=== PATIENT | male | born 1945 | race Caucasian/White ===

== ENCOUNTER 2019-10-23 05:30 | Inpatient (IN) | payer BC ==
[2019-10-18 11:15] LABS: BASOPHILS # (AUTO) 0.1 K/uL (0.0-0.2); BASOPHILS % (AUTO) 1.2 % (0.0-2.0); EOSINOPHILS # (AUTO) 0.2 K/uL (0.0-0.4); EOSINOPHILS % (AUTO) 2.7 % (0.0-4.0); HEMOGLOBIN 14.4 g/dL (14.0-18.0); LYMPHOCYTES # (AUTO) 2.1 K/uL (1.0-5.5); LYMPHOCYTES % (AUTO) 28.6 % (20.5-51.5); MEAN CORPUSCULAR HEMOGLOBIN 32 pg (27-31); MEAN CORPUSCULAR HGB CONC 34 % (32-36); MEAN CORPUSCULAR VOLUME 94 fL (79.0-98.0); MONOCYTES # (AUTO) 0.8 K/uL (0.0-1.0); MONOCYTES % (AUTO) 10.5 % (1.7-9.3); NEUTROPHILS # (AUTO) 4.2 K/uL (1.8-7.7); PLATELET COUNT (AUTO) 271 K/uL (130-430); RED BLOOD CELL COUNT(AUTO) 4.58 MIL/uL (4.2-6.2); RED CELL DISTRIBUTION WIDTH 13.4 % (9.0-15.0); WHITE BLOOD COUNT (AUTO) 7.4 K/uL (4.8-10.8)
[2019-10-18 11:27] LABS: BILIRUBIN,URINE NEGATIVE (NEGATIVE); CLARITY/URINE CLEAR (CLEAR); COLOR,URINE YELLOW (YELLOW); GLUCOSE,URINE NEGATIVE (NEGATIVE); KETONES,URINE NEGATIVE (NEGATIVE); LEUKOCYTE ESTERASE ,URINE NEGATIVE (NEGATIVE); NITRITE, URINE NEGATIVE (NEGATIVE); PH,URINE 5.5 (5.0-8.0); PROTEIN URINE NEGATIVE (NEGATIVE); UROBILINOGEN,URINE 0.2 (0.2-1.0)
[2019-10-18 11:33] LABS: PROTHROMBIN TIME 9.9 SECS (9.5-12.5)
[2019-10-18 11:42] LABS: BLOOD, URINE TRACE (NEGATIVE)
[2019-10-18 11:52] LABS: BACTERIA,URINE FEW /HPF (None Seen); WBC,URINE 0-3 /HPF (0-3)
[2019-10-22 20:00] VITALS: BP_SYST 102
[~2019-10-23] VITALS: Ht 188 cm; Wt 101.6 kg
[2019-10-23] MEDS ORDERED: ACETAMINOPHEN 500 MG TABLET ONE (06:14)
[2019-10-23] MEDS ORDERED: CELECOXIB 200 MG CAPSULE ONE (06:14)
[2019-10-23] MEDS ORDERED: oxyCODONE HCL 10 MG TAB.ER.12H PO ONE ×2 (06:15→07:30)
[2019-10-23] MEDS ORDERED: TRANEXAMIC ACID 650 MG TABLET ONE (06:15)
[2019-10-23] MEDS ORDERED: GABAPENTIN 300 MG CAPSULE ONE (06:15)
[2019-10-23] MEDS ORDERED: BENA20TA75 PO (07:15)
[2019-10-23] MEDS ORDERED: BUPIVACAINE /PF 0.75% 10 ML VIAL INJ ONE (07:16)
[2019-10-23] MEDS ORDERED: NS 50 ML BAG IV ONE (07:16)
[2019-10-23] MEDS ORDERED: TRANEXAMIC ACID 1,000 MG/10 ML VIAL IV ONE (07:16)
[2019-10-23] MEDS ORDERED: PROPOFOL 200MG/ 20ML VIAL (DIPRIVAN) IV ONE (07:16)
[2019-10-23] MEDS ORDERED: BUPIVACAINE /PF 0.25% 30 ML VIAL INJ ONE (07:16)
[2019-10-23] MEDS ORDERED: ONDANSETRON HCL 4 MG/2 ML VIAL IVP ONE (07:16)
[2019-10-23] MEDS ORDERED: LR 1,000 ML IV.SOLN IV ONE (07:16)
[2019-10-23] MEDS ORDERED: SEVOFLURANE 15 MIN GAS INH ONE (07:16)
[2019-10-23] MEDS ORDERED: ePHEDrine sulfate 50 MG/ML VIAL IVP ONE (07:16)
[2019-10-23] MEDS ORDERED: MIDAZOLAM HCL 5 MG/5 ML VIAL IVP ONE (07:16)
[2019-10-23] MEDS ORDERED: ROPIVACAINE HCL/PF 5 MG/ML 0.5% 30 ML VIAL INJ ONE (07:16)
[2019-10-23] MEDS ORDERED: MORPHINE SULFATE 10MG/10ML PF AMP EP ONE (07:16)
[2019-10-23] MEDS ORDERED: TRANEXAMIC ACID 650 MG TABLET PO ONE (07:30)
[2019-10-23] MEDS ORDERED: CEFAZOLIN SOD 2 GM in D5W 50 ML IV ONE (07:30)
[2019-10-23] MEDS ORDERED: GABAPENTIN 300 MG CAPSULE PO ONE (07:30)
[2019-10-23] MEDS ORDERED: ACETAMINOPHEN 500 MG TABLET PO ONE (07:30)
[2019-10-23] MEDS ORDERED: CELECOXIB 200 MG CAPSULE PO ONE (07:30)
[2019-10-23] MEDS ORDERED: RIVAROXABAN 10 MG TABLET PO ONE ×2 (09:00→11:15)
[2019-10-23] MEDS ORDERED: D5/0.45 NS 1,000 ML IV ONE (09:34)
[2019-10-23] MEDS ORDERED: ACETAMINOPHEN 325 MG TABLET PO PRN (09:45)
[2019-10-23] MEDS ORDERED: BISACODYL 10 MG/SUPPOSITORY RC PRN (09:45)
[2019-10-23] MEDS ORDERED: CEFAZOLIN 1 GM IVPB PREMIX 50 ML IV SCH ×2 (10:00→11:15)
[2019-10-23 10:49] VITALS: BP_SYST 106
[2019-10-23] MEDS: NACL 0.9% 1,000 ML IV SCH ×3 (11:46→21:45)
[2019-10-23] MEDS: CEFAZOLIN 1 GM IVPB PREMIX 50 ML IV SCH ×2 (14:27→21:44)
[2019-10-23 20:00] VITALS: BP_SYST 102
[2019-10-24 00:08] VITALS: BP_SYST 113
[2019-10-24] MEDS: HYDROcodone/ACETAMIN 7.5-325 MG TAB PO PRN ×4 (06:15→23:37)
[2019-10-24] MEDS: NACL 0.9% 1,000 ML IV SCH ×3 (06:15→23:30)
[2019-10-24 08:37] VITALS: BP_SYST 134
[2019-10-24] MEDS: RIVAROXABAN 10 MG TABLET PO SCH (09:27)
[2019-10-24 09:42] LABS: BASOPHILS % (AUTO) 0.4 % (0.0-2.0); EOSINOPHILS % (AUTO) 0.3 % (0.0-4.0); HEMATOCRIT 32.7 % (36-54); LYMPHOCYTES # (AUTO) 1.9 K/uL (1.0-5.5); LYMPHOCYTES % (AUTO) 16.7 % (20.5-51.5); MEAN CORPUSCULAR HEMOGLOBIN 32 pg (27-31); MEAN CORPUSCULAR HGB CONC 33 % (32-36); MEAN CORPUSCULAR VOLUME 94 fL (79.0-98.0); MONOCYTES # (AUTO) 1.8 K/uL (0.0-1.0); MONOCYTES % (AUTO) 15.4 % (1.7-9.3); NEUTROPHILS # (AUTO) 7.6 K/uL (1.8-7.7); NEUTROPHILS % (AUTO) 67.2 % (40.0-70.0); PLATELET COUNT (AUTO) 190 K/uL (130-430); RED BLOOD CELL COUNT(AUTO) 3.48 MIL/uL (4.2-6.2); RED CELL DISTRIBUTION WIDTH 13.2 % (9.0-15.0); WHITE BLOOD COUNT (AUTO) 11.4 K/uL (4.8-10.8)
[2019-10-24 09:52] LABS: ANION GAP 7 (5-15); CALCIUM 7.9 mg/dL (8.4-11.0); CHLORIDE 104 mmol/L (98-107); CREATININE 0.98 mg/dL (0.55-1.30); GLUCOSE 101 mg/dL (70-99); POTASSIUM 4.2 mmol/L (3.5-5.1); SODIUM SERUM 137 mmol/L (136-145); UREA NITROGEN, BLOOD 23 mg/dL (8-21)
[2019-10-24 09:57] LABS: ALANINE AMINOTRANSFERASE 21 U/L (12-78); ALBUMIN 2.9 g/dL (3.4-4.8); ASPARTATE AMINOTRANSFERASE 19 U/L (10-37); TOTAL BILIRUBIN 0.8 mg/dL (0.0-1.0)
[2019-10-24 12:26] VITALS: BP_SYST 140
[2019-10-24 16:20] VITALS: BP_SYST 137
[2019-10-24 20:00] VITALS: BP_SYST 115
[2019-10-25] MEDS: MORPHINE SULFATE 10 MG/ML VIAL IM PRN ×2 (01:02→05:14)
[2019-10-25 01:04] VITALS: BP_SYST 131
[2019-10-25 01:46] VITALS: BP_SYST 144
[2019-10-25 01:51] VITALS: BP_SYST 128
[2019-10-25] MEDS: NACL 0.9% 1,000 ML IV SCH (07:30)
[2019-10-25 08:00] VITALS: BP_SYST 134
[2019-10-25] MEDS: RIVAROXABAN 10 MG TABLET PO SCH (08:46)
[2019-10-25] MEDS ORDERED: RIVA10TA PO ×2 (09:56→09:57)
[2019-10-25 10:00] VITALS: BP_SYST 141
== END 2019-10-25 14:10 | disposition home health service (06) | DRG 470 ==
LOC: SDS 05:30 → SMU 05:30 → EDSTATUS 07:30 → SMU 10:59 → SDS 18:30 → SMU 18:33
PROVIDERS: ADMIT Orthopaedic Surgery; ATTEND Orthopaedic Surgery
PROC: 0SRC0J9 Replacement of Right Knee Joint with Synthetic Substitute, Cemented, Open Approach (ICD-10-PCS; principal; 2019-10-23 07:30)
DX: M17.11 Unilateral primary osteoarthritis, right knee (principal); E44.0 Moderate protein-calorie malnutrition; F17.210 Nicotine dependence, cigarettes, uncomplicated; I10 Essential (primary) hypertension
CPT/HCPCS: 36415; 71046-TC; 80053; 81000-TC; 85025; 85610-TC; 85730-TC; 87081; 88305; 88311; 93005; 97039; 97110-GP; 97163; C1713; J0690; J2250; J2270; J2274; J2405; J2704; J3490; J7030; J7060; J7120

== ENCOUNTER 2020-05-23 11:19 | Outpatient (CLI) | payer OTHER, BC ==
[~2020-05-23 11:19] MED LIST: BENA20TA75 PO
== END 2020-05-23 20:22 | disposition home or self-care (01) ==
LOC: SRD 11:19
PROVIDERS: ATTEND Orthopaedic Surgery
DX: M17.12 Unilateral primary osteoarthritis, left knee (principal)
CPT/HCPCS: 73564

== ENCOUNTER 2020-06-17 05:30 | Inpatient (IN) | payer BC ==
[2020-06-10 10:31] LABS: BILIRUBIN,URINE NEGATIVE (NEGATIVE); BLOOD, URINE NEGATIVE (NEGATIVE); CLARITY/URINE CLEAR (CLEAR); COLOR,URINE YELLOW (YELLOW); GLUCOSE,URINE NEGATIVE (NEGATIVE); KETONES,URINE NEGATIVE (NEGATIVE); LEUKOCYTE ESTERASE ,URINE NEGATIVE (NEGATIVE); NITRITE, URINE NEGATIVE (NEGATIVE); PROTEIN URINE NEGATIVE (NEGATIVE); UROBILINOGEN,URINE 0.2 (0.2-1.0)
[2020-06-10 10:38] LABS: BASOPHILS # (AUTO) 0.1 K/uL (0.0-0.2); BASOPHILS % (AUTO) 0.7 % (0.0-2.0); EOSINOPHILS # (AUTO) 0.2 K/uL (0.0-0.4); EOSINOPHILS % (AUTO) 2.7 % (0.0-4.0); HEMATOCRIT 43.1 % (36-54); HEMOGLOBIN 14.5 g/dL (14.0-18.0); LYMPHOCYTES % (AUTO) 24.5 % (20.5-51.5); MEAN CORPUSCULAR HEMOGLOBIN 31 pg (27-31); MEAN CORPUSCULAR HGB CONC 34 % (32-36); MEAN CORPUSCULAR VOLUME 93 fL (79.0-98.0); MONOCYTES # (AUTO) 1.1 K/uL (0.0-1.0); MONOCYTES % (AUTO) 13.2 % (1.7-9.3); NEUTROPHILS # (AUTO) 4.8 K/uL (1.8-7.7); NEUTROPHILS % (AUTO) 58.9 % (40.0-70.0); PLATELET COUNT (AUTO) 264 K/uL (130-430); RED BLOOD CELL COUNT(AUTO) 4.62 MIL/uL (4.2-6.2); RED CELL DISTRIBUTION WIDTH 13.8 % (9.0-15.0); WHITE BLOOD COUNT (AUTO) 8.2 K/uL (4.8-10.8)
[2020-06-10 10:57] LABS: ANION GAP 9 (5-15); CALCIUM 8.7 mg/dL (8.4-11.0); CHLORIDE 101 mmol/L (98-107); CREATININE 1.11 mg/dL (0.55-1.30); GLUCOSE 109 mg/dL (70-99); POTASSIUM 4.3 mmol/L (3.5-5.1); SODIUM SERUM 136 mmol/L (136-145); UREA NITROGEN, BLOOD 22 mg/dL (8-21)
[~2020-06-17] VITALS: Ht 185.4 cm; Wt 102.1 kg
[2020-06-17] MEDS ORDERED: POLYMYXIN 500,000/BACIT.10,000 UNITS in NS IRR 1 L IR ONE (07:22)
[2020-06-17] MEDS ORDERED: BISACODYL 10 MG/SUPPOSITORY RC PRN (07:30)
[2020-06-17] MEDS ORDERED: CEFAZOLIN SOD 1 GM in D5W 50 ML IV ONE (07:30)
[2020-06-17] MEDS ORDERED: ACETAMINOPHEN 325 MG TABLET PO PRN (07:30)
[2020-06-17] MEDS ORDERED: SEVOFLURANE 15 MIN GAS INH ONE (08:25)
[2020-06-17] MEDS ORDERED: LIDOCAINE 1% 10 MG/ML, 20 ML MDV INJ ONE (08:25)
[2020-06-17] MEDS ORDERED: fentaNYL CITRATE/PF 100 MCG/2 ML AMP IVP ONE (08:25)
[2020-06-17] MEDS ORDERED: LR 1,000 ML IV.SOLN IV ONE (08:25)
[2020-06-17] MEDS ORDERED: PROPOFOL 200MG/ 20ML VIAL (DIPRIVAN) IV ONE (08:25)
[2020-06-17] MEDS ORDERED: ePHEDrine sulfate 50 MG/ML VIAL IVP ONE (08:25)
[2020-06-17] MEDS ORDERED: TRANEXAMIC ACID 1,000 MG/10 ML VIAL IV ONE (08:25)
[2020-06-17] MEDS ORDERED: fentaNYL CITRATE 250 MCG/5 ML AMP IV ONE (08:25)
[2020-06-17] MEDS ORDERED: ROPIVACAINE HCL/PF 5 MG/ML 0.5% 30 ML VIAL INJ ONE (08:25)
[2020-06-17] MEDS ORDERED: ONDANSETRON HCL 4 MG/2 ML VIAL IVP ONE (08:25)
[2020-06-17] MEDS ORDERED: ROCURONIUM BROMIDE 10 MG/ML (ZEMURON) IV ONE (08:25)
[2020-06-17] MEDS ORDERED: METOCLOPRAMIDE HCL 10 MG/2 ML VIAL IVP ONE (08:25)
[2020-06-17] MEDS ORDERED: GLYCOPYRROLATE 0.2 MG/ML VIAL IJ ONE (08:25)
[2020-06-17] MEDS ORDERED: LR 1,000 ML IV SCH (10:00)
[2020-06-17] MEDS ORDERED: HYDROmorphone 1 MG INJ. 1 MG/ML AMPUL IVP PRN ×2 (10:00)
[2020-06-17] MEDS ORDERED: ONDANSETRON HCL 4 MG/2 ML VIAL IVP PRN (10:00)
--- NOTE | 2020-06-17 10:45 | NUR ---
Notes Received patient from [facility], awake s/p left total knee replacement. dressing dry and intact, with polar ice. oriented to call light use. educated on pain management and use of incentive spirometer pt verbalize understanding.
[2020-06-17 10:50] VITALS: BP_SYST 125
[2020-06-17 10:51] VITALS: BP_SYST 126
[2020-06-17] MEDS ORDERED: VALS160T2 PO (11:00)
[2020-06-17] MEDS ORDERED: RIVAROXABAN 10 MG TABLET PO ONE (11:00)
--- NOTE | 2020-06-17 12:30 | NUR ---
notes patient refuse CPM machine as per physical therapy
[2020-06-17] MEDS: HYDROcodone/ACETAMIN 7.5-325 MG TAB PO PRN ×3 (12:55→22:17)
--- NOTE | 2020-06-17 15:08 | NUR ---
Notes Resting, pain is controlled. call light in reach. Enc to call for help as needed.
[2020-06-17 15:37] VITALS: BP_SYST 100
[2020-06-17] MEDS: CEFAZOLIN 1 GM IVPB PREMIX 50 ML IV SCH (16:14)
--- NOTE | 2020-06-17 19:30 | NUR ---
OPENING NOTE RECEIVED PATIENT AOX4, AWAKE IN BED WITH NO SIGNS OF DISTRESS NOTED. SURGICAL DRESSING C/D/I WITH POLAR ICE IN PLACE AND FUNCTIONING WELL. PATIENT DENIES PAIN AT THIS TIME. PATIENT COMPLAINS OF IT BEING TOO COLD IN ROOM, SECURITY ADJUSTED THERMOSTAT IN ROOM, PATIENT NOW STATES HE IS COMFORTABLE AT THIS TIME. PATIENT REFUSING CPM MACHINE. EDUCATED PATIENT ON INCENTIVE SPIROMETER USE, PATIENT VERBALIZED UNDERSTANDING. PATIENT TOLERATING IV FLUIDS WITH NO SIGNS OF INFILTRATION TO IV SITE. SAFETY AND FALL PRECAUTIONS IN PLACE. BED LOCKED IN LOW POSITION, CALL LIGHT IN REACH. WILL CONTINUE TO MONITOR.
[2020-06-17 20:00] VITALS: BP_SYST 102
--- NOTE | 2020-06-17 20:45 | NUR ---
TEMPERATURE CONTROL PATIENT COMPLAINING OF IT BEING TOO COLD IN ROOM, OFFERED TO MOVE HIM TO ANOTHER ROOM, PATIENT STATES HE DOES NOT WANT TO MOVE ROOMS. GATHERED DRAPES AND POSITIONED THEM IN FRONT OF VENT IN ATTEMPT TO PARTIALLY BLOCK AIRFLOW FROM VENT. OFFERED WARM BLANKETS, PATIENT REFUSING. EDUCATED PATIENT THERMOSTAT IS CURRENTLY AT THE MAXIMUM TEMPERATURE ALLOWED. CHARGE NURSE ELAINE MORAN.
--- NOTE | 2020-06-17 23:45 | NUR ---
COMPLAINTS OF PAIN REPOSITIONED PATIENT IN BED AND PROVIDED PILLOWS FOR COMFORT, POLAR ICE THERAPY IN PLACE AND FUNCTIONING WELL. OFFERED PAIN MEDICATION PATIENT REFUSED AT THIS TIME. PATIENT STATES HE DOES NOT WANT MORPHINE AND IT IS TOO SOON FOR NEXT DOSE OF NORCO. WILL CONTINUE TO MONITOR.
[2020-06-18 00:30] VITALS: BP_SYST 128
--- NOTE | 2020-06-18 01:20 | NUR ---
PAIN MEDICATION / TEMP CONTROL PATIENT NOW REQUESTING MORPHINE, MEDICATED ORDERED. PATIENT COMPLAINS OF ROOM TOO COLD, CHARGE NURSE OFFERED TO RELOCATE PATIENT TO NEW ROOM. PATIENT REFUSES TO RELOCATE. PROVIDED WITH ADDITIONAL WARM BLANKETS.
[2020-06-18] MEDS: MORPHINE SULFATE 10 MG/ML VIAL IM PRN ×3 (01:32→13:11)
[2020-06-18] MEDS: CEFAZOLIN 1 GM IVPB PREMIX 50 ML IV SCH (01:33)
--- NOTE | 2020-06-18 03:07 | NUR ---
RN ROUNDS PATIENT SLEEPING WITH NO SIGNS OF DISTRESS NOTED. WILL CONTINUE TO MONITOR.
--- NOTE | 2020-06-18 06:15 | NUR ---
CLOSING NOTE PATIENT IN BED AWAKE, WATCHING TV. NO COMPLAINT OF PAIN AT THIS TIME. POLAR ICE THERAPY IN PLACE AND FUNCTIONING WELL. IV SITE PATENT AND FLUSHING WELL WITH NO SIGNS OF INFILTRATION NOTED. PATIENT CONTINUES TO REFUSE CPM MACHINE DESPITE EDUCATION ON IMPORTANCE OF CPM POST-OP TOTAL KNEE REPLACEMENT. SAFETY AND FALL MEASURES IN PLACE. BED LOCKED AND IN LOW POSITION WITH CALL LIGHT IN REACH. PATIENT DOES NOT COMPLAIN OF TEMPERATURE IN ROOM AT THIS TIME. ALL CARE NEEDS MET. WILL CONTINUE TO MONITOR UNTIL ENDORSED TO AM NURSE.
--- NOTE | 2020-06-18 07:40 | NUR ---
OPENING NOTES PT AWAKE, ALERT, AND ORIENTED X4. NONLABORED BREATHING NOTED ON ROOM AIR. LEFT LEG CONNECTED TO POLAR ICE, AND COVERED WITH WRAP. IV LINE INTACT AND PATENT, NO SIGNS OF INFILTRATION NOTED, FLUIDS RUNNING ORDERED PER MD. NO ACUTE DISTRESS NOTED. ALL NEEDS MET. CALL LIGHT IN REACH. FALL AND ASPIRATION PRECAUTIONS IN PLACE. PT C/O PAIN, WILL ADMINISTERED PAIN MEDS ORDERED PER MD.
[2020-06-18 08:00] VITALS: BP_SYST 123
[2020-06-18] MEDS: LOSARTAN POTASSIUM 50 MG TABLET (COZAAR) PO SCH (08:01)
[2020-06-18] MEDS: RIVAROXABAN 10 MG TABLET PO SCH (08:02)
--- NOTE | 2020-06-18 08:08 | NUR ---
PT C/O PAIN, CHECKED BP, ROUTINE AND PAIN MEDS ADMINISTERED ORDERED PER MD, EDUCATION GIVEN, TOLERATED WELL. CONTINUE TO MONITOR.
--- NOTE | 2020-06-18 08:19 | NUR ---
PT SEEN BY AND SPOKE TO DR. ROMAN AT BEDSIDE. RECEIVED ORDERS TO ICE LEFT THIGH, VERIFIED, AND CARRIED OUT.
--- NOTE | 2020-06-18 09:20 | NUR ---
ROUNDS PT RESTING IN BED, CHEST RISE AND FALL NOTED. EASILY AWAKEN. NO ACUTE DISTRESS NOTED. ALL NEEDS MET. CALL LIGHT IN REACH. CONTINUE TO MONITOR.
--- NOTE | 2020-06-18 09:28 | NUR ---
Nutrition Update Giovany Scale 16 noted. Pt admitted for unilateral primary OA, L knee. Diet: regular BMI: 29.7 kg/m2 RD to follow per nutrition care standards.
--- NOTE | 2020-06-18 11:07 | NUR ---
SEEN BY PHYSICAL THERAPIST ANU, AMBULATED WITH WALKER, TOLERATED WELL. PT ON CPM MACHINE AT THIS TIME, TOLERATING WELL. CONTINUE TO MONITOR.
[2020-06-18 11:31] VITALS: BP_SYST 98
--- NOTE | 2020-06-18 13:13 | NUR ---
pt c/o pain, bp checked wnl, administered pain meds as ordered per md, education given, tolerated well. continue to monitor.
--- NOTE | 2020-06-18 13:20 | NUR ---
EDUCATED PT ON INCENTIVE SPIROMETER, PT VERBALIZED UNDERSTANDING, MEASURED AT 3500ML. CONTINUE TO MONITOR.
[2020-06-18 15:45] VITALS: BP_SYST 98
--- NOTE | 2020-06-18 16:04 | NUR ---
rounds PT RESTING IN BED, CHEST RISE AND FALL NOTED. EASILY AWAKEN. NO ACUTE DISTRESS NOTED. ALL NEEDS MET. CALL LIGHT IN REACH. CONTINUE TO MONITOR.
--- NOTE | 2020-06-18 18:54 | NUR ---
CLOSING NOTES PT AWAKE, ALERT, AND ORIENTED X4. PT DENIES PAIN AT THIS TIME. NONLABORED BREATHING NOTED ON ROOM AIR. LEFT LEG CONNECTED TO POLAR ICE, AND COVERED WITH WRAP. RIGHT SCD INTACT AND ON. IV LINE INTACT AND PATENT, NO SIGNS OF INFILTRATION NOTED. NO ACUTE DISTRESS NOTED. ALL NEEDS MET. CALL LIGHT IN REACH. FALL AND ASPIRATION PRECAUTIONS IN PLACE. WILL ENDORSE TO NOC NURSE.
--- NOTE | 2020-06-18 19:30 | NUR ---
OPENING NOTES RECEIVED SBAR REPORT FROM DAY SHIFT RN. PT RESTING IN BED, ALERT & ORIENTED X4. BREATHING EVEN AND UNLABORED TO ROOM AIR. PT CONNECTED TO POLAR ICE ON LEFT LEG, AND COVERED WITH WRAP. PT DENIES ANY PAIN AT THIS TIME. IV ON RIGHT HAND 20G, INTACT. CALL LIGHT WITHIN REACH. SIDE RAILS UP X3. BED ALARM ON, LOCKED IN LOWEST POSITION. PATEL CATHETER INTACT, DRAINING BY GRAVITY. SAFETY AND FALL PRECAUTIONS ARE IN PLACE. WILL CONTINUE TO MONITOR.
[2020-06-18 20:00] VITALS: BP_SYST 114
--- NOTE | 2020-06-18 21:55 | NUR ---
RN ROUNDS PT RESTING IN BED. BREATHING EVEN AND UNLABORED TO ROOM AIR. NO SIGNS OF RESPIRATORY DISTRESS NOTED. PT KAILEE PAIN. STILL CONNECTED TO POLAR ICE ON LEFT KNEE. PT TOLERATING WELL. PATEL CATHETER INTACT, DRAINING BY GRAVITY. CALL LIGHT WITHIN REACH. SIDE RAILS UP X3. BED ALARM ON, LOCKED IN LOWEST LEVEL. SAFETY AND FALL PRECAUTIONS MAINTAINED. WILL CONTINUE TO MONITOR.
[2020-06-19] VITALS: BP_SYST 108
--- NOTE | 2020-06-19 01:29 | NUR ---
RN ROUNDS PT SLEEPING. CHEST RISE AND FALL SYMMETRICAL. BREATHING EVEN AND UNLABORED TO ROOM AIR. NO SIGNS OF RESPIRATORY DISTRESS NOTED. PATEL CATHETER INTACT, DRAINING BY GRAVITY. CALL LIGHT WITHIN REACH. SIDE RAILS UP X3. BED ALARM ON, LOCKED IN LOWEST LEVEL. SAFETY AND FALL PRECAUTIONS MAINTAINED. WILL MONITOR.
[2020-06-19] MEDS: HYDROcodone/ACETAMIN 7.5-325 MG TAB PO PRN (02:37)
--- NOTE | 2020-06-19 02:37 | NUR ---
PAIN/NORCO MEDICATION PT REPORTING LEFT KNEE PAIN. ADMINISTERED NORCO MEDICATION ORDERED PRN. DISCUSSED MEDICATION ACTIONS AND POTENTIAL SIDE EFFECTS. PT VERBALIZED UNDERSTANDING. BREATHING EVEN AND UNLABORED TO ROOM AIR. SCD ON RIGHT LEG. PATEL CATHETER INTACT, DRAINING BY GRAVITY. CALL LIGHT WITHIN REACH. BED ALARM ON. SAFETY AND FALL PRECAUTIONS MAINTAINED. WILL CONTINUE TO MONITOR.
--- NOTE | 2020-06-19 06:00 | NUR ---
DC PATEL. NO S/S OF DISTRESS NOTED. PT TOLERATED WELL.
[2020-06-19 06:28] LABS: BASOPHILS % (AUTO) 0.3 % (0.0-2.0); EOSINOPHILS % (AUTO) 0.2 % (0.0-4.0); HEMATOCRIT 29.4 % (36-54); LYMPHOCYTES # (AUTO) 1.2 K/uL (1.0-5.5); LYMPHOCYTES % (AUTO) 10.4 % (20.5-51.5); MEAN CORPUSCULAR HEMOGLOBIN 32 pg (27-31); MEAN CORPUSCULAR HGB CONC 34 % (32-36); MEAN CORPUSCULAR VOLUME 93 fL (79.0-98.0); MONOCYTES % (AUTO) 16.8 % (1.7-9.3); NEUTROPHILS # (AUTO) 8.6 K/uL (1.8-7.7); NEUTROPHILS % (AUTO) 72.3 % (40.0-70.0); PLATELET COUNT (AUTO) 201 K/uL (130-430); RED BLOOD CELL COUNT(AUTO) 3.15 MIL/uL (4.2-6.2); RED CELL DISTRIBUTION WIDTH 13.4 % (9.0-15.0); WHITE BLOOD COUNT (AUTO) 11.9 K/uL (4.8-10.8)
--- NOTE | 2020-06-19 06:40 | NUR ---
CLOSING NOTES PT RESTING IN BED. BREATHING EVEN AND UNLABORED TO ROOM AIR. PT CONNECTED TO POLAR ICE ON LEFT LEG, AND COVERED WITH WRAP. PT DENIES ANY PAIN AT THIS TIME. IV ON RIGHT HAND 20G, INTACT, SL. CALL LIGHT WITHIN REACH. SIDE RAILS UP X3. BED ALARM ON, LOCKED IN LOWEST POSITION. SAFETY AND FALL PRECAUTIONS ARE IN PLACE. ALL NEEDS ARE MET THROUGHOUT SHIFT. WILL CONTINUE TO MONITOR UNTIL ENDORSE TO DAY SHIFT RN.
[2020-06-19 06:53] LABS: ANION GAP 6 (5-15); CHLORIDE 95 mmol/L (98-107); CREATININE 1.94 mg/dL (0.55-1.30); GLUCOSE 136 mg/dL (70-99); POTASSIUM 4.1 mmol/L (3.5-5.1); SODIUM SERUM 128 mmol/L (136-145); UREA NITROGEN, BLOOD 44 mg/dL (8-21)
[2020-06-19] MEDS ORDERED: NACL 0.9% 1,000 ML IV ONE (07:45)
[2020-06-19] MEDS: RIVAROXABAN 10 MG TABLET PO SCH (08:54)
--- NOTE | 2020-06-19 08:58 | NUR ---
OPENING NOTES PT AWAKE, ALERT, AND ORIENTED X4. NONLABORED BREATHING NOTED ON ROOM AIR. IV LINE INTACT AND PATENT, NO SIGNS OF INFILTRATION NOTED. LEFT LEG CONNECTED TO POLAR ICE, AND COVERED WITH WRAP. NO ACUTE DISTRESS NOTED. RIGHT SCD ON AND IN PLACE. ALL NEEDS MET. CALL LIGHT IN REACH. FALL AND ASPIRATION PRECAUTIONS IN PLACE. CONTINUE TO MONITOR.
[2020-06-19] MEDS: LOSARTAN POTASSIUM 50 MG TABLET (COZAAR) PO SCH (09:00)
--- NOTE | 2020-06-19 09:00 | NUR ---
ROUTINE MEDS ADMINISTERED ORDERED PER MD, EDUCATION GIVEN, TOLERATED WELL. DR. DAMON STATED BP LOW, BOLUS ADMINISTERED ORDERED PER MD, HELD BP MEDS. CONTINUE TO MONITOR.
[2020-06-19] MEDS: NACL 0.9% 1,000 ML IV SCH ×2 (10:06→17:31)
--- NOTE | 2020-06-19 10:08 | NUR ---
ADMINISTERED SECOND IV BOLUS ORDERED PER MD, EDUCATION GIVEN, TOLERATED WELL. BP 112/63 AT THIS TIME. CONTINUE TO MONITOR.
--- NOTE | 2020-06-19 12:00 | NUR ---
ROUNDS PT AWAKE AND ALERT. NO ACUTE DISTRESS NOTED. ALL NEEDS MET. CALL LIGHT IN REACH. CONTINUE TO MONITOR.
[2020-06-19 12:06] VITALS: BP_SYST 124
--- NOTE | 2020-06-19 14:45 | NUR ---
ROUNDS PT AWAKE AND ALERT. PT DENIES PAIN AT THIS TIME. NO ACUTE DISTRESS NOTED. ALL NEEDS MET. CALL LIGHT IN REACH. CONTINUE TO MONITOR.
--- NOTE | 2020-06-19 15:11 | NUR ---
Case mgt: Creatinine increased to 1.94, BUN increased to 44--no discharge today-due to kidney abnormal labs--receiving IVF --FELISHA MORENO
[2020-06-19 16:08] VITALS: BP_SYST 121
--- NOTE | 2020-06-19 16:44 | NUR ---
ASSISTED PT TO THE BATHROOM WITH ALLY BUNCH. TOLERATED WELL. VERBALIZED TO PT TO PULL ON THE STRING WHEN DONE, PT VERBALIZED UNDERSTANDING.
--- NOTE | 2020-06-19 17:34 | NUR ---
fluids administered as ordered per md, education given, tolerated well. continue to monitor.
--- NOTE | 2020-06-19 18:56 | NUR ---
CLOSING NOTES PT RESTING IN BED, CHEST RISE AND FALL NOTED, EASILY AWAKEN. NONLABORED BREATHING NOTED ON ROOM AIR. PT DENIES PAIN AT THIS TIME. IV LINE INTACT AND PATENT, NO SIGNS OF INFILTRATION NOTED, FLUIDS RUNNING ORDERED PER MD. LEFT LEG CONNECTED TO POLAR ICE, AND COVERED WITH WRAP. NO ACUTE DISTRESS NOTED. RIGHT SCD ON AND IN PLACE. ALL NEEDS MET. CALL LIGHT IN REACH. FALL AND ASPIRATION PRECAUTIONS IN PLACE. WILL ENDORSE TO NOC NURSE.
--- NOTE | 2020-06-19 19:25 | NUR ---
Opening note Patient is awake, AOx4, resting in bed, no distress. He denies pain or nausea. Left knee on Polar care, IVF infusing via IV on rt hand. Bed is locked in lowest position, bed alarm on and call light w/in reach.
[2020-06-19 20:00] VITALS: BP_SYST 123
--- NOTE | 2020-06-19 22:00 | NUR ---
rounds Patient doesn't have medication due. He denies pain or nausea, will continue to monitor.
[2020-06-20 00:15] VITALS: BP_SYST 116
--- NOTE | 2020-06-20 02:05 | NUR ---
IV start IV was leaking, it fell off. A new IV was start # 22 gauge angiocath placed to right hand. Use of asceptic technique, opsite placed over site and blood return noted. Flushed with 10 cc of normal saline. No evidence of infiltration noted; patient tolerated. Resumed fluids.
--- NOTE | 2020-06-20 03:12 | NUR ---
OOB, restroom Patient was assisted out of bed and ambulated with assist and use of FWW to restroom for bowel movement. Bed linen changed. Patient assisted on return to bed. Resting in comfortable position; SCD on right leg and polar pack in place. Safety precautions maintained.
[2020-06-20] MEDS: NACL 0.9% 1,000 ML IV SCH (03:20)
--- NOTE | 2020-06-20 03:20 | NUR ---
IVF Hung new bag of normal saline and infusing well, no infiltration noted; tolerating.
--- NOTE | 2020-06-20 06:30 | NUR ---
closing note Patient is awake, resting in bed, no distress. He denies pain or nausea. Left knee on Polar care, IVF infusing via IV on rt hand. Bed is locked in lowest position, bed alarm on and call light w/in reach, needs met throughout the shift, will endorse care.
[2020-06-20 06:32] LABS: BASOPHILS % (AUTO) 0.3 % (0.0-2.0); EOSINOPHILS % (AUTO) 0.4 % (0.0-4.0); HEMATOCRIT 26.2 % (36-54); HEMOGLOBIN 9.1 g/dL (14.0-18.0); LYMPHOCYTES # (AUTO) 1.2 K/uL (1.0-5.5); LYMPHOCYTES % (AUTO) 11.8 % (20.5-51.5); MEAN CORPUSCULAR HEMOGLOBIN 32 pg (27-31); MEAN CORPUSCULAR HGB CONC 35 % (32-36); MEAN CORPUSCULAR VOLUME 94 fL (79.0-98.0); MONOCYTES # (AUTO) 1.6 K/uL (0.0-1.0); MONOCYTES % (AUTO) 15.9 % (1.7-9.3); NEUTROPHILS # (AUTO) 7.3 K/uL (1.8-7.7); NEUTROPHILS % (AUTO) 71.6 % (40.0-70.0); PLATELET COUNT (AUTO) 195 K/uL (130-430); RED BLOOD CELL COUNT(AUTO) 2.81 MIL/uL (4.2-6.2); RED CELL DISTRIBUTION WIDTH 13.3 % (9.0-15.0); WHITE BLOOD COUNT (AUTO) 10.2 K/uL (4.8-10.8)
[2020-06-20 06:37] LABS: ALANINE AMINOTRANSFERASE 28 U/L (12-78); ALBUMIN 2.3 g/dL (3.4-4.8); ANION GAP 7 (5-15); ASPARTATE AMINOTRANSFERASE 27 U/L (10-37); CALCIUM 7.8 mg/dL (8.4-11.0); CHLORIDE 97 mmol/L (98-107); CREATININE 1.23 mg/dL (0.55-1.30); GLUCOSE 115 mg/dL (70-99); POTASSIUM 3.2 mmol/L (3.5-5.1); SODIUM SERUM 128 mmol/L (136-145); UREA NITROGEN, BLOOD 35 mg/dL (8-21)
[2020-06-20] MEDS ORDERED: POTASSIUM CHLORIDE 20 MEQ TAB.PRT.SR PO ONE (08:00)
[2020-06-20] MEDS: HYDROcodone/ACETAMIN 7.5-325 MG TAB PO PRN (08:35)
[2020-06-20] MEDS: RIVAROXABAN 10 MG TABLET PO SCH (08:36)
[2020-06-20] MEDS: LOSARTAN POTASSIUM 50 MG TABLET (COZAAR) PO SCH (08:37)
[2020-06-20] MEDS ORDERED: HYDR-4274 PO (09:03)
[2020-06-20] MEDS ORDERED: RIVA10TA PO (09:04)
--- NOTE | 2020-06-20 09:17 | NUR ---
Discharge Planning: BONNIEP faxed pt referral to [facility] ([phone]) and [facility] ([phone]) DME-CPM, bedside commode. DCP to follow up. Addendum: 06/20/20 at 1653 by Tia Evangelista DP DCP followed up on referral to [facility] ([phone]) accepted pt will see with in 24 hrs and [facility] ([phone]) DME will be delivered to patients home tomorrow. BONNIEP made CM aware.
--- NOTE | 2020-06-20 09:38 | NUR ---
Spoke w/ patient-he requested BSC for home use. He requested Home Health w/ [facility], he liked his therapist they sent before. He agreed to BSC and CPM machine to be sent to his home.
[2020-06-20 10:13] VITALS: BP_SYST 146
--- NOTE | 2020-06-20 10:36 | NUR ---
alert, oriented, complained of " pain on the left knee, just got out of bathroom when first seen. BP 146/58, with HR 111 when back to bed, one NORCO given for pain. the site red, swollen, and tender to touch. james Patterson. Basing on last experience with R knee replacement, requested some supply, to change self after the shower, if the site gets wet. Request honored. Fully understanding he is discharged with 2 RX 1/ [place] 10/325mg , by mouth, as needed every 4-6hrs for pain 2/Xarelto 10mg by mouth, for 20days, also made aware he is NOT going to take Xarelto when home today, bec he already got one this am. now awaiting the son to picker feeder at 1pm. The knee wrapped around with melissa bandage on discharge.
[2020-06-20 12:09] VITALS: BP_SYST 113
--- NOTE | 2020-06-20 14:08 | NUR ---
Pt not authorized for BSC-he agreed to buy the BSC for himself-CPM machine will be sent to patient's home
--- NOTE | 2020-06-26 09:26 | NUR ---
Discharge Follow Up Phone Call Phoned patient, , and spoke with patient's , Kayla. She stated that patient is doing okay. He has swelling in his leg, but the home health nurse looked at it and felt it was normal. He is having bouts of loose stool and diarrhea. This was not mentioned to the home nurse. Patient has a follow up appointment with his PCP, Dr Yoo, on 07/02/20. I recommended she phone Dr Yoo's office for a recommendation on what to do about the loose stool. Patient is not taking much narcotics and his pain is manageable. He received the CPM and is using it as directed. [facility] been coming out and patient is happy with the service. No other questions or concerns.
== END 2020-06-20 13:00 | disposition home health service (06) | DRG 470 ==
LOC: SDS 05:30 → SMU 05:30 → EDSTATUS 07:30 → SDS 07:30 → SMU 07:35
PROVIDERS: ADMIT Orthopaedic Surgery; ATTEND Orthopaedic Surgery
PROC: 0SRD0J9 Replacement of Left Knee Joint with Synthetic Substitute, Cemented, Open Approach (ICD-10-PCS; principal; 2020-06-17 07:30)
DX: M17.12 Unilateral primary osteoarthritis, left knee (principal); N39.0 Urinary tract infection, site not specified; F17.210 Nicotine dependence, cigarettes, uncomplicated; I10 Essential (primary) hypertension; J44.9 Chronic obstructive pulmonary disease, unspecified; Z96.653 Presence of artificial knee joint, bilateral; E66.01 Morbid (severe) obesity due to excess calories; M17.0 Bilateral primary osteoarthritis of knee; R03.0 Elevated blood-pressure reading, without diagnosis of hypertension; Z20.828 Contact with and (suspected) exposure to other viral communicable diseases; Z68.29 Body mass index [BMI] 29.0-29.9, adult; E86.0 Dehydration
CPT/HCPCS: 36415; 71046-TC; 80048; 80053; 81003; 85025; 85610-TC; 85730-TC; 88305; 88311; 93005; 97110-GP; 97116-GP; 97163; 97530-GP; C1713; C1776; J0690; J2001; J2270; J2405; J2704; J2765; J3010; J3490; J7030; J7060; J7120; U0003

== ENCOUNTER 2024-06-21 09:35 | Emergency (ER) | payer BC ==
[~2024-06-21] VITALS: Ht 185.4 cm; Wt 108.9 kg
[2024-06-21 09:35] VITALS: BP_SYST 151; PULSE 86; RESP 19; TEMP 97.2; O2SAT 96
[~2024-06-21 09:35] MED LIST changes: -BENA20TA75 PO; +HYDR-4274 PO; +RIVA10TA PO; +VALS160T2 PO
[2024-06-21] MEDS ORDERED: CEPH-548 PO (10:00)
[2024-06-21] MEDS ORDERED: BEN50 PO (10:02)
[2024-06-21] MEDS: cephALEXin 500 MG CAPSULE PO ONE (10:25)
[2024-06-21 10:27] VITALS: BP_SYST 151; PULSE 86; RESP 19; TEMP 97.2; O2SAT 96
== END 2024-06-21 10:28 | disposition home or self-care (01) ==
LOC: SED 09:35
DX: L03.114 Cellulitis of left upper limb (principal); L03.113 Cellulitis of right upper limb; Z96.653 Presence of artificial knee joint, bilateral; Z79.899 Other long term (current) drug therapy; Z79.01 Long term (current) use of anticoagulants; Z79.2 Long term (current) use of antibiotics; W57.XXXA Bitten or stung by nonvenomous insect and other nonvenomous arthropods, initial encounter; Y93.89 Activity, other specified; Y92.89 Other specified places as the place of occurrence of the external cause; Y99.8 Other external cause status
CPT/HCPCS: 99283